=== PATIENT | female | born 1955 | race Caucasian/White ===

== ENCOUNTER → 2017-06-29 | Outpatient (CLI) | payer BC | LOC: RAD 08:41 | DX: R73.02 Impaired glucose tolerance (oral) (principal); I10 Essential (primary) hypertension; E03.9 Hypothyroidism, unspecified; S63.612A Unspecified sprain of right middle finger, initial encounter ==

== ENCOUNTER → 2017-07-02 | Outpatient (CLI) | payer BC | LOC: RAD 07:54 | DX: K22.2 Esophageal obstruction (principal); K44.9 Diaphragmatic hernia without obstruction or gangrene; K21.9 Gastro-esophageal reflux disease without esophagitis ==

== ENCOUNTER → 2017-07-09 | Day surgery (SDC) | payer BC | LOC: MSO 07:27 | DX: R13.10 Dysphagia, unspecified (principal); K22.2 Esophageal obstruction; K20.9 Esophagitis, unspecified; I10 Essential (primary) hypertension; E66.9 Obesity, unspecified; E07.9 Disorder of thyroid, unspecified; K44.9 Diaphragmatic hernia without obstruction or gangrene | CPT/HCPCS: 00740; A4649; C1726; J7120 ==

== ENCOUNTER → 2017-07-10 | Outpatient (CLI) | payer BC | LOC: MAMMO 08:23 | DX: Z12.31 Encounter for screening mammogram for malignant neoplasm of breast (principal); R13.10 Dysphagia, unspecified; K44.9 Diaphragmatic hernia without obstruction or gangrene; M87.852 Other osteonecrosis, left femur | CPT/HCPCS: G0202; Q9967 ==

== ENCOUNTER → 2017-07-23 | Day surgery (SDC) | payer BC | LOC: MSO 09:42 | DX: K22.2 Esophageal obstruction (principal); K21.9 Gastro-esophageal reflux disease without esophagitis; I10 Essential (primary) hypertension; E66.9 Obesity, unspecified; E07.9 Disorder of thyroid, unspecified | CPT/HCPCS: J3010; J7120 ==

== ENCOUNTER → 2017-08-13 | Day surgery (SDC) | payer BC | LOC: MSO 08:29 | DX: K22.2 Esophageal obstruction (principal); K21.9 Gastro-esophageal reflux disease without esophagitis; I10 Essential (primary) hypertension; E07.9 Disorder of thyroid, unspecified | CPT/HCPCS: 00740; A4649; C1726; J7120 ==

== ENCOUNTER → 2019-11-17 | Outpatient (CLI) | payer BC ==
[2019-11-17 11:05] LABS: ALBUMIN 3.9 g/dL (3.4-4.8); EOS # 0.3 (0.04-0.40); HEMATOCRIT 42.9 % (37.0-47.0); HEMOGLOBIN 13.6 g/dL (12.5-16.0); LYMPH# 2.4 (1.50-4.00); MEAN CELL VOLUME 91 fl (78-100); MEAN CORPUSCULAR HEMOGLOBIN 29 pg (27-31); MEAN CORPUSCULAR HGB CONC 32 g/dL (33-37); MEAN PLATELET VOLUME 10.1 fl (7.4-10.4); MONO # 0.8 (0.20-0.80); NEU # 5.3 (1.40-6.50); PLATELET COUNT 315 K/mm3 (130-400); POTASSIUM 4.2 mmol/L (3.5-5.1); RED BLOOD COUNT 4.73 M/mm3 (4.10-5.30); RED CELL DISTRIBUTION WIDTH 14.6 % (11.5-14.5); WHITE BLOOD COUNT 8.9 K/mm3 (4.8-10.8)
[2019-11-17 11:06] LABS: CALCIUM 9.9 mg/dL (8.3-10.5)
[2019-11-17 11:08] LABS: TOTAL PROTEIN 7.5 g/dL (6.2-8.1)
[2019-11-17 11:09] LABS: TOTAL BILIRUBIN 0.6 mg/dL (0.2-1.2)
== END ==
LOC: LAB 10:14
PROVIDERS: Family Medicine
DX: Z00.00 Encounter for general adult medical examination without abnormal findings (principal); I10 Essential (primary) hypertension; E03.9 Hypothyroidism, unspecified; R73.02 Impaired glucose tolerance (oral)

== ENCOUNTER → 2019-11-27 | Outpatient (CLI) | payer BC | LOC: CARDREHAB 07:52 → CARDLAB 07:52 | DX: M16.12 Unilateral primary osteoarthritis, left hip (principal); R07.9 Chest pain, unspecified ==

== ENCOUNTER → 2019-12-03 | Outpatient (CLI) | payer BC | LOC: MAMMO 15:58 | DX: Z12.31 Encounter for screening mammogram for malignant neoplasm of breast (principal) ==

== ENCOUNTER → 2020-09-01 | Outpatient (CLI) | payer BC ==
[~2020-09-01] MED LIST: ACETAMINOPHEN-H1 TA2 PO; LEVOTHYROXINE112 MCG PO; LISINOPRIL20 MG PO; MELOXICAM15 MG PO; PRILOSEC 20MG20 MG PO
[2020-09-01 10:03] LABS: BASO # 0.1 (0.02-0.10); EOS # 0.2 (0.04-0.40); EOS % 2.3 % (1.0-5.0); HEMATOCRIT 41.5 % (37.0-47.0); HEMOGLOBIN 13.5 g/dL (12.5-16.0); LYMPH# 2.3 (1.50-4.00); MEAN CELL VOLUME 89 fl (78-100); MEAN CORPUSCULAR HEMOGLOBIN 29 pg (27-31); MEAN CORPUSCULAR HGB CONC 33 g/dL (33-37); MEAN PLATELET VOLUME 9.4 fl (7.4-10.4); MONO # 0.8 (0.20-0.80); NEU # 5.9 (1.40-6.50); PLATELET COUNT 310 K/mm3 (130-400); RED BLOOD COUNT 4.64 M/mm3 (4.10-5.30); RED CELL DISTRIBUTION WIDTH 14.1 % (11.5-14.5); WHITE BLOOD COUNT 9.2 K/mm3 (4.8-10.8)
[2020-09-01 10:44] LABS: POTASSIUM 4.1 mmol/L (3.5-5.1)
[2020-09-01 10:45] LABS: CALCIUM 10.1 mg/dL (8.3-10.5)
[2020-09-01 10:46] LABS: TOTAL PROTEIN 7.5 g/dL (6.2-8.1)
[2020-09-01 10:48] LABS: TOTAL BILIRUBIN 0.9 mg/dL (0.2-1.2)
== END ==
LOC: LAB 09:41
PROVIDERS: Family Medicine
DX: Z00.00 Encounter for general adult medical examination without abnormal findings (principal); N92.5 Other specified irregular menstruation; R73.03 Prediabetes

== ENCOUNTER → 2020-09-10 | Outpatient (CLI) | payer BC ==
[2020-09-01 23:45] VITALS: BP 157/85
[2020-09-10 10:17] LABS: EOS # 0.5 (0.04-0.40); EOS % 4.8 % (1.0-5.0); HEMATOCRIT 38.3 % (37.0-47.0); LYMPH# 2.4 (1.50-4.00); MEAN CELL VOLUME 91 fl (78-100); MEAN CORPUSCULAR HEMOGLOBIN 29 pg (27-31); MEAN CORPUSCULAR HGB CONC 31 g/dL (33-37); MEAN PLATELET VOLUME 9.4 fl (7.4-10.4); MONO # 0.8 (0.20-0.80); NEU # 5.9 (1.40-6.50); PLATELET COUNT 386 K/mm3 (130-400); RED CELL DISTRIBUTION WIDTH 14.5 % (11.5-14.5); WHITE BLOOD COUNT 9.6 K/mm3 (4.8-10.8)
[2020-09-10 11:21] LABS: ERYTHROCYTE SEDIMENTATION RATE 53 mm/hr (0-30)
== END ==
LOC: LAB 09:52
PROVIDERS: Family Medicine
DX: M79.10 Myalgia, unspecified site (principal)

== ENCOUNTER 2020-09-28 11:00 | Outpatient (RCR) | payer BC ==
[2020-09-01 23:45] VITALS: BP 157/85
== END 2020-10-04 | disposition home or self-care (01) ==
LOC: PT
DX: M19.90 Unspecified osteoarthritis, unspecified site (principal)

== ENCOUNTER 2020-10-05 08:59 | Outpatient (RCR) | payer BC ==
[2020-09-01 23:45] VITALS: BP 157/85
== END 2020-11-03 16:30 | disposition home or self-care (01) ==
LOC: PT 08:59
DX: M19.90 Unspecified osteoarthritis, unspecified site (principal)

== ENCOUNTER → 2020-12-15 | Outpatient (CLI) | payer BC ==
[2020-09-01 23:45] VITALS: BP 157/85
[2020-12-15 17:03] LABS: PROGESTERONE 0.1 ng/mL (())
== END ==
LOC: RAD 07:15
PROVIDERS: Family Medicine
DX: R93.89 Abnormal findings on diagnostic imaging of other specified body structures (principal); N92.5 Other specified irregular menstruation

== ENCOUNTER → 2021-01-04 | Outpatient (CLI) | payer BC ==
[2020-09-01 23:45] VITALS: BP 157/85
== END ==
LOC: MAMMO 16:00
DX: Z12.31 Encounter for screening mammogram for malignant neoplasm of breast (principal)

== ENCOUNTER → 2021-03-22 | Outpatient (CLI) | payer BC ==
[2021-03-22 07:43] LABS: BASO # 0.06 (0.02-0.10); EOS # 0.34 (0.04-0.40); HEMATOCRIT 41.8 % (37.0-47.0); HEMOGLOBIN 13.4 g/dL (12.5-16.0); LYMPH# 2.96 (1.50-4.00); MEAN CELL VOLUME 88 fl (78-100); MEAN CORPUSCULAR HEMOGLOBIN 28 pg (27-31); MEAN CORPUSCULAR HGB CONC 32 g/dL (33-37); MEAN PLATELET VOLUME 9.6 fl (7.4-10.4); MONO # 0.76 (0.20-0.80); NEU # 4.44 (1.40-6.50); PLATELET COUNT 313 K/mm3 (130-400); RED BLOOD COUNT 4.73 M/mm3 (4.10-5.30); RED CELL DISTRIBUTION WIDTH 13.9 % (11.5-14.5); WHITE BLOOD COUNT 8.6 K/mm3 (4.8-10.8)
[2021-03-22 08:18] LABS: ALBUMIN 3.9 g/dL (3.4-4.8)
[2021-03-22 08:19] LABS: CALCIUM 9.9 mg/dL (8.3-10.5)
[2021-03-22 08:20] LABS: TOTAL PROTEIN 7.4 g/dL (6.2-8.1)
[2021-03-22 08:22] LABS: TOTAL BILIRUBIN 1.1 mg/dL (0.2-1.2)
[2021-03-22 19:50] LABS: URINE APPEARANCE HAZY; URINE BILIRUBIN NEGATIVE (NEGATIVE); URINE BLOOD 50 ery/uL (NEGATIVE); URINE COLOR HAZY; URINE GLUCOSE NEGATIVE (NEGATIVE); URINE KETONE NEGATIVE (NEGATIVE); URINE LEUKOCYTE ESTERASE TRACE (NEGATIVE); URINE NITRATE NEGATIVE (NEGATIVE); URINE PROTEIN(semi-quant) NEGATIVE (NEGATIVE); URINE UROBILINOGEN NORMAL (NORMAL)
[2021-03-22 19:51] LABS: URINE MUCUS PRESENT (NOT PRESENT)
== END ==
LOC: RAD 07:22
PROVIDERS: Family Medicine
DX: Z01.89 Encounter for other specified special examinations (principal); N39.0 Urinary tract infection, site not specified

== ENCOUNTER → 2021-04-05 | Outpatient (CLI) | payer BC ==
[2021-04-05 09:45] LABS: URINE APPEARANCE CLEAR; URINE BILIRUBIN NEGATIVE (NEGATIVE); URINE BLOOD 50 ery/uL (NEGATIVE); URINE COLOR YELLOW; URINE GLUCOSE NEGATIVE (NEGATIVE); URINE KETONE NEGATIVE (NEGATIVE); URINE LEUKOCYTE ESTERASE NEGATIVE (NEGATIVE); URINE NITRATE NEGATIVE (NEGATIVE); URINE PROTEIN(semi-quant) TRACE mg/dL (NEGATIVE); URINE UROBILINOGEN NORMAL (NORMAL)
[2021-04-05 09:46] LABS: URINE MUCUS PRESENT (NOT PRESENT)
== END ==
LOC: LAB 09:08
PROVIDERS: Family Medicine
DX: Z01.818 Encounter for other preprocedural examination (principal)

== ENCOUNTER → 2021-04-29 | Outpatient (CLI) | payer BC ==
[2021-04-29 08:21] LABS: URINE APPEARANCE CLEAR; URINE BILIRUBIN NEGATIVE (NEGATIVE); URINE BLOOD TRACE (NEGATIVE); URINE COLOR YELLOW; URINE GLUCOSE NEGATIVE (NEGATIVE); URINE KETONE NEGATIVE (NEGATIVE); URINE LEUKOCYTE ESTERASE NEGATIVE (NEGATIVE); URINE NITRATE NEGATIVE (NEGATIVE); URINE PROTEIN(semi-quant) NEGATIVE (NEGATIVE); URINE UROBILINOGEN NORMAL (NORMAL)
== END ==
LOC: LAB 07:58
PROVIDERS: Family Medicine
DX: Z01.89 Encounter for other specified special examinations (principal)

== ENCOUNTER → 2022-05-31 | Outpatient (CLI) | payer MEDICARE, BC ==
[2022-05-31 09:20] LABS: BASO # 0.04 K/mm3 (0.02-0.10); EOS # 0.24 K/mm3 (0.04-0.40); EOS % 2.9 % (1.0-5.0); HEMATOCRIT 41.7 % (37.0-47.0); HEMOGLOBIN 13.5 g/dL (12.5-16.0); LYMPH# 2.42 K/mm3 (1.50-4.00); MEAN CELL VOLUME 88 fl (78-100); MEAN CORPUSCULAR HEMOGLOBIN 29 pg (27-31); MEAN CORPUSCULAR HGB CONC 32 g/dL (33-37); MEAN PLATELET VOLUME 9.6 fl (7.4-10.4); MONO # 0.69 K/mm3 (0.20-0.80); PLATELET COUNT 293 K/mm3 (130-400); RED BLOOD COUNT 4.73 M/mm3 (4.10-5.30); RED CELL DISTRIBUTION WIDTH 13.7 % (11.5-14.5); WHITE BLOOD COUNT 8.3 K/mm3 (4.8-10.8)
[2022-05-31 09:28] LABS: POTASSIUM 4.2 mmol/L (3.5-5.1)
[2022-05-31 09:29] LABS: CALCIUM 10.7 mg/dL (8.3-10.5)
[2022-05-31 09:30] LABS: TOTAL PROTEIN 7.5 g/dL (6.2-8.1)
[2022-05-31 09:32] LABS: TOTAL BILIRUBIN 0.9 mg/dL (0.2-1.2)
== END ==
LOC: LAB 09:00
PROVIDERS: Family Medicine
DX: Z00.00 Encounter for general adult medical examination without abnormal findings (principal); Z12.39 Encounter for other screening for malignant neoplasm of breast; Z13.820 Encounter for screening for osteoporosis; K21.00 Gastro-esophageal reflux disease with esophagitis, without bleeding; M19.90 Unspecified osteoarthritis, unspecified site; E78.5 Hyperlipidemia, unspecified; L71.9 Rosacea, unspecified; E03.4 Atrophy of thyroid (acquired); I10 Essential (primary) hypertension; E66.01 Morbid (severe) obesity due to excess calories; R73.03 Prediabetes

== ENCOUNTER → 2023-06-12 | Outpatient (CLI) | payer MEDICARE, BC ==
[2023-06-12 09:00] LABS: BASO # 0.01 K/mm3 (0.02-0.10); EOS # 0.27 K/mm3 (0.04-0.40); EOS % 3.2 % (1.0-5.0); HEMATOCRIT 40.4 % (37.0-47.0); HEMOGLOBIN 12.9 g/dL (12.5-16.0); LYMPH# 2.71 K/mm3 (1.50-4.00); MEAN CELL VOLUME 90 fl (78-100); MEAN CORPUSCULAR HEMOGLOBIN 29 pg (27-31); MEAN CORPUSCULAR HGB CONC 32 g/dL (33-37); MEAN PLATELET VOLUME 9.7 fl (7.4-10.4); MONO # 0.64 K/mm3 (0.20-0.80); NEU # 4.78 K/mm3 (1.40-6.50); PLATELET COUNT 294 K/mm3 (130-400); RED BLOOD COUNT 4.48 M/mm3 (4.10-5.30); WHITE BLOOD COUNT 8.4 K/mm3 (4.8-10.8)
[2023-06-12 09:09] LABS: ALBUMIN 3.9 g/dL (3.4-4.8); POTASSIUM 3.8 mmol/L (3.5-5.1)
[2023-06-12 09:10] LABS: CALCIUM 10.6 mg/dL (8.3-10.5)
[2023-06-12 09:12] LABS: TOTAL PROTEIN 7.1 g/dL (6.2-8.1)
[2023-06-12 09:14] LABS: TOTAL BILIRUBIN 0.9 mg/dL (0.2-1.2)
== END ==
LOC: LAB 08:45
PROVIDERS: Family Medicine
DX: Z00.00 Encounter for general adult medical examination without abnormal findings (principal); Z12.31 Encounter for screening mammogram for malignant neoplasm of breast; E78.5 Hyperlipidemia, unspecified; E03.4 Atrophy of thyroid (acquired); I10 Essential (primary) hypertension; K57.90 Diverticulosis of intestine, part unspecified, without perforation or abscess without bleeding; K21.00 Gastro-esophageal reflux disease with esophagitis, without bleeding; R73.03 Prediabetes; E66.01 Morbid (severe) obesity due to excess calories; M19.90 Unspecified osteoarthritis, unspecified site; L71.9 Rosacea, unspecified; M25.552 Pain in left hip; E55.9 Vitamin D deficiency, unspecified; M85.80 Other specified disorders of bone density and structure, unspecified site

== ENCOUNTER 2023-08-09 08:00 | Outpatient (RCR) | payer MEDICARE, BC | END 2023-08-30 | disposition home or self-care (01) | LOC: PT | DX: M25.552 Pain in left hip (principal) ==

== ENCOUNTER 2023-09-06 08:00 | Outpatient (RCR) | payer MEDICARE, BC | END 2023-09-30 | disposition home or self-care (01) | LOC: PT | DX: M25.552 Pain in left hip (principal) ==

== ENCOUNTER → 2024-08-04 | Outpatient (CLI) | payer MEDICARE, BC ==
[2024-08-04 13:05] LABS: BASO # 0.02 K/mm3 (0.02-0.10); EOS # 0.31 K/mm3 (0.04-0.40); EOS % 2.9 % (1.0-5.0); HEMATOCRIT 43.9 % (37.0-47.0); LYMPH# 3.08 K/mm3 (1.50-4.00); MEAN CELL VOLUME 93 fl (78-100); MEAN CORPUSCULAR HEMOGLOBIN 30 pg (27-31); MEAN CORPUSCULAR HGB CONC 32 g/dL (33-37); MEAN PLATELET VOLUME 9.4 fl (7.4-10.4); MONO # 0.79 K/mm3 (0.20-0.80); NEU # 6.61 K/mm3 (1.40-6.50); PLATELET COUNT 286 K/mm3 (130-400); RED CELL DISTRIBUTION WIDTH 13.6 % (11.5-14.5); WHITE BLOOD COUNT 10.8 K/mm3 (4.8-10.8)
[2024-08-04 13:14] LABS: ALBUMIN 4.4 g/dL (3.4-4.8)
[2024-08-04 13:15] LABS: CALCIUM 11.1 mg/dL (8.3-10.5)
[2024-08-04 13:17] LABS: TOTAL PROTEIN 7.9 g/dL (6.2-8.1)
[2024-08-04 13:18] LABS: TOTAL BILIRUBIN 0.9 mg/dL (0.2-1.2)
[2024-08-04 13:35] LABS: PH-URINE 5.5 (5.0 - 8.0); URINE APPEARANCE CLEAR (CLEAR); URINE BILIRUBIN NEGATIVE (NEGATIVE); URINE BLOOD TRACE (NEGATIVE); URINE COLOR YELLOW (YELLOW); URINE GLUCOSE NEGATIVE (NEGATIVE); URINE KETONE NEGATIVE (NEGATIVE); URINE LEUKOCYTE ESTERASE NEGATIVE (NEGATIVE); URINE MUCUS PRESENT (NOT PRESENT); URINE NITRATE NEGATIVE (NEGATIVE); URINE PROTEIN(semi-quant) NEGATIVE (NEGATIVE); URINE WBC 0-1 /hpf (0-3)
[2024-08-05] LABS: HEPATITIS C VIRUS ANTIBODY Nonreactive (Nonreactiv)
== END ==
LOC: LAB 12:47
PROVIDERS: Family Medicine
DX: Z11.59 Encounter for screening for other viral diseases (principal); E78.5 Hyperlipidemia, unspecified; E55.9 Vitamin D deficiency, unspecified; E03.4 Atrophy of thyroid (acquired); I10 Essential (primary) hypertension; R73.03 Prediabetes; R30.0 Dysuria

== ENCOUNTER → 2024-08-14 | Outpatient (CLI) | payer MEDICARE, BC | LOC: MAMMO 14:55 | DX: Z12.31 Encounter for screening mammogram for malignant neoplasm of breast (principal); D17.79 Benign lipomatous neoplasm of other sites; M85.80 Other specified disorders of bone density and structure, unspecified site; M25.552 Pain in left hip ==

== ENCOUNTER → 2024-09-09 | Outpatient (CLI) | payer MEDICARE, BC | LOC: RAD 07:50 | DX: D17.79 Benign lipomatous neoplasm of other sites (principal); M51.369 Other intervertebral disc degeneration, lumbar region without mention of lumbar back pain or lower extremity pain; Z96.642 Presence of left artificial hip joint ==

== ENCOUNTER → 2024-11-03 | Day surgery (SDC) | payer MEDICARE, BC ==
[~2024-11-03] MED LIST changes: +Lidocaine PF 2% (20 MG/ML) 5 ML VIAL ONE
== END | disposition home or self-care (01) ==
LOC: MSO 10-06 08:44
DX: K21.9 Gastro-esophageal reflux disease without esophagitis (principal); K44.9 Diaphragmatic hernia without obstruction or gangrene; G47.33 Obstructive sleep apnea (adult) (pediatric); E66.01 Morbid (severe) obesity due to excess calories; Z87.19 Personal history of other diseases of the digestive system; Z79.82 Long term (current) use of aspirin; Z79.899 Other long term (current) drug therapy
CPT/HCPCS: 00731; J2704; J7120